=== PATIENT | female | born 1990 | race Caucasian/White ===

== ENCOUNTER 2016-09-02 11:33 | Emergency (ER) | payer MEDICAID ==
[~2016-09-02] VITALS: Ht 157.5 cm; Wt 77.1 kg
[~2016-09-02 11:33] MED LIST: ALPRAZOLAM0.5 MG PO; APAP/BUTALBITAL1 TA1 PO; BACTRIM DS 8001 TA1 PO; ETODOLAC200 MG PO; FERROUS SULFAT325 M2 PO; FLAGYL 500MG.500 MG PO; FLEXERIL10 MG PO; HYDROXYZINE 25M25 MG PO; IBUPROFEN200 MG PO; IBUPROFEN800 MG PO; KEFLEX 500MG.500 MG PO; KEFLEX500 M1 PO; LORTAB 5/500 501 TAB PO; LORTAB 500 MG-71 TAB PO; MOTRIN400 MG PO; NAPROSYN 500MG500 MG PO; NOMEDS; PERCOCET 5/3251 EACH PO; PHENERGAN 25MG.25 M1 PO; PNV-SELECT1 TAB PO; PREDNISONE 20MG20 MG PO; PRENATAL PLUS1 TA1 PO; PROZAC10 MG PO; TORADOL10 M1 PO; TYLENOL W/CODEI1 TA2 PO; VENLAFAXINE H37.5 MG PO; VENTOLIN H0.09 MG/AC IH; ZITHROMAX Z PA250 MG PO
--- OUTSIDE RECORDS SUMMARY | 2016-09-02 11:44 | External Medical Summary Rpt ---
Demographics Preferred Language Austrian Marital Status Unknown [employer] Affiliation Unknown Race Unknown Ethnic Group Unknown Author Author , BILL KHAN Address Unknown Phone Immunization Unable to retrieve immunization data due to connection failure with Immunization Registry. Please try again later.
--- OUTSIDE RECORDS SUMMARY | 2016-09-02 11:44 | External Medical Summary Rpt ---
Author Author BILL Zamora, BILL Zamora Organization [employer] Address Unknown Phone Unavailable
--- OUTSIDE RECORDS SUMMARY | 2016-09-02 11:44 | External Medical Summary Rpt ---
Author Author , BILL KHAN Address Unknown Phone [email or web address] Purpose Continuity of Care Document - through 2016 Problems Code Diagnosis DOS Provider Status S39.012A STRAIN OF MUSCLE, FASCIA AND TENDON OF LOWER BACK, INIT S60.229A CONTUSION OF UNSPECIFIED HAND, INITIAL ENCOUNTER S63.619A UNSPECIFIED SPRAIN OF UNSPECIFIED FINGER, INITIAL ENCOUNTER S93.409A SPRAIN OF UNSP LIGAMENT OF UNSPECIFIED ANKLE, INIT ENCNTR T14.8 OTHER INJURY OF UNSPECIFIED BODY REGION
--- OUTSIDE RECORDS SUMMARY | 2016-09-02 11:44 | External Medical Summary Rpt ---
Author Author , BILL KHAN Address Unknown Phone [email or web address] Purpose Continuity of Care Document - through [...]
--- OUTSIDE RECORDS SUMMARY | 2016-09-02 11:44 | External Medical Summary Rpt ---
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 Please try again later.
[2016-09-02] MEDS ORDERED: IBUPROFEN800 MG PO (12:14)
--- NOTE | 2016-09-02 12:15 | Urgent Treatment Center Report ---
History of Present Issue Date/Time Seen by Provider 09/02/16 1200 Visit Reason Pt arrived:Walked Presenting Problem:PT REPORTS L ANKLE PAIN R/T FALL LASTNIGHT. Location if Accident: Onset of symptoms date/time:09/01/16 or onset unknown for: Have you (or family members/close friends) recently traveled outside the [place]? N If Yes, where/when: Have you had exposure to infectious disease within the past month? TB? Other? Specify: Kenneth states that she was on her porch when she tripped and fell off the porch and landed on her left ankle state that she felt something "pop" and she has been having pain in the ankle ever since. States that pain is worse when she bears weight or trys to walk on it. ALLERGIES Coded Allergies: tramadol (From [facility]) (05/15/16) Home Medications Active Scripts Ibuprofen (Ibuprofen 800MG) 800 MG PO Q8HP PRN pain #15 TAB Prov: 06/11/16 Reported Medications ALPRAZOLAM (Alprazolam 0.5MG) 0.5 MG PO TID Fluoxetine Hcl (Prozac) 10 MG PO DAILY History Medical History General CAD? No Angina: Yes [place]: No Hypertension? No Hyperlipidemia? No CHF? No DVT? No PE? No COPD? No Asthma? No Anemia? No GERD? No Gastric ulcers? No GI Bleed? No Hernia? No Thyroid Problems? No Hypothyroidism? No CVA? No Seizures? No Diabetes? No UTI? Yes Stones? No GB Disease: No Nephritic Syndrome? No Asplenia? No Hepatitis? No Sickle Cell Disease? No Arthritis? No Migraines? No Cataracts? No Glaucoma? No MRSA? No HIV? No TB? No Anxiety? Yes Depression? No Cancer? No Immunization HX DT/Tetanus Unknown Flu 2011-FSN Pneumonia NEVER Surgical Hx Previous Surgery?Y CSECX2 TONSILS/ADENOIDS WISDOM TEETH EXTRACTION TUBAL LIGATION 08/14/2012 [employer] Hx LMP 2 Weeks Ago Family History Family HX Diabetes Yes CAD No Hypertension No Hyperlipidemia No Cancer Yes TB No Social History Smoking Hx Smoker: Current Every Day Smoker Tobacco: Yes Type Cigarettes Packs/day < 1 Pack Alcohol Alcohol: No Review of Systems All Other Systems Reviewed and Negative Comment Pain in left ankle after tripping and falling off her porch last night Physical Exam Vital Signs Vital Signs Date Time Temp Pulse Resp B/P Pulse O2 O2 Flow FiO2 Ox Delivery Rate 09/02 1146 98.0 85 20 125/74 98 09/02 1136 98.0 85 20 125/74 98 General Appearance normal appearance, WD/WN, no apparent distress Respiratory Status Yes: trachea midline, chest symmetrical, non tender chest. No: respiratory distress. 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 No Results/Orders Orders Procedure Date/time Status UTC STABILIZE JOINT/AREA 09/02 1212 Active ANKLE-LT-3 VIEWS 09/02 1148 Active Departure Departure Time of Disposition 2 Disposition DC Home or Self Care(routine) Clinical Impression Primary Impression: Ankle sprain Condition STABLE Referrals Bartolo SARAH,A.C. (Family): 2 Days-Call Office if worsening of symptoms for referral to ortho if needed Patient Instructions DI for Ankle Sprain, How To Perform RICE (Rest, Ice, Compress, Elevate) Additional Instructions *weight bearing as tolerated *RICE, Rest the extremity, Ice 15-20 minutes 3-4 times daily, Compress- wear the shawn wrap as discussed as much as possible to help reduce swelling and pain, Elevate the extremity when at rest *Shawn wrap is for support and help control swelling, use it except in the shower. Be sure that is not to tight but not to loose either *Elevate when resting *Ibuprofen 800mg every 6-8 hours as needed for pain an inflammation. If need something more can take Tylenol in between doses of Ibuprofen to help Immediately follow up for new or worsening of symptoms, or no noticeable improvement over the next 3-5 days Discharge Counseling Counseled pt/family regarding diagnosis, test results, medications/RX, home care, follow up needs Prescriptions Current Visit Scripts Ibuprofen (Ibuprofen 800MG) 800 MG PO QIDP PRN pain #30 TAB at 1214
--- NOTE | 2016-09-02 12:15 | Urgent Treatment Center Report ---
History of Present Issue Date/Time Seen by Provider 09/02/16 1200 Visit Reason Pt arrived:Walked Presenting Problem:PT REPORTS L ANKLE PAIN R/T FALL LASTNIGHT. Location if Accident: Onset of symptoms date/time:09/01/16 or onset unknown for: Have you (or family members/close friends) recently traveled outside the [place]? N If Yes, where/when: Have you had exposure to infectious disease within the past month? TB? Other? Specify: Kenneth states that she was on her porch when she tripped and fell off the porch and landed on her left ankle state that she felt something "pop" and she has been having pain in the ankle ever since. States that pain is worse when she bears weight or trys to walk on it. ALLERGIES Coded Allergies: tramadol (From [facility]) (05/15/16) Home Medications Active Scripts Ibuprofen (Ibuprofen 800MG) 800 MG PO Q8HP PRN pain #15 TAB Prov: 06/11/16 Reported Medications ALPRAZOLAM (Alprazolam 0.5MG) 0.5 MG PO TID Fluoxetine Hcl (Prozac) 10 MG PO DAILY History Medical History General CAD? No Angina: Yes [place]: No Hypertension? No Hyperlipidemia? No CHF? No DVT? No PE? No COPD? No Asthma? No Anemia? No GERD? No Gastric ulcers? No GI Bleed? No Hernia? No Thyroid Problems? No Hypothyroidism? No CVA? No Seizures? No Diabetes? No UTI? Yes Stones? No GB Disease: No Nephritic Syndrome? No Asplenia? No Hepatitis? No Sickle Cell Disease? No Arthritis? No Migraines? No Cataracts? No Glaucoma? No MRSA? No HIV? No TB? No Anxiety? Yes Depression? No Cancer? 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 Family History Family HX Diabetes Yes CAD No Hypertension No Hyperlipidemia No Cancer Yes TB No Social History Smoking Hx Smoker: Current Every Day Smoker Tobacco: Yes Type Cigarettes Packs/day < 1 Pack Alcohol Alcohol: No Review of Systems All Other Systems Reviewed and Negative Comment Pain in left ankle after tripping and falling off her porch last night Physical Exam Vital Signs Vital Signs Date Time Temp Pulse Resp B/P Pulse O2 O2 Flow FiO2 Ox Delivery Rate 09/02 1146 98.0 85 20 125/74 98 09/02 1136 98.0 85 20 125/74 98 General Appearance normal appearance, WD/WN, no apparent distress Respiratory Status Yes: trachea midline, chest symmetrical, non tender chest. No: respiratory distress. 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 No Results/Orders Orders Procedure Date/time Status UTC STABILIZE JOINT/AREA 09/02 1212 Active ANKLE-LT-3 VIEWS 09/02 1148 Active Departure Departure Time of Disposition 2 Disposition DC Home or Self Care(routine) Clinical Impression Primary Impression: Ankle sprain Condition STABLE Referrals Bartolo SARAH,A.C. (Family): 2 Days-Call Office if worsening of symptoms for referral to ortho if needed Patient Instructions DI for Ankle Sprain, How To Perform RICE (Rest, Ice, Compress, Elevate) Additional Instructions *weight bearing as tolerated *RICE, Rest the extremity, Ice 15-20 minutes 3-4 times daily, Compress- wear the shawn wrap as discussed as much as possible to help reduce swelling and pain, Elevate the extremity when at rest *Shawn wrap is for support and help control swelling, use it except in the shower. Be sure that is not to tight but not to loose either *Elevate when resting *Ibuprofen 800mg every 6-8 hours as needed for pain an inflammation. If need something more can take Tylenol in between doses of Ibuprofen to help Immediately follow up for new or worsening of symptoms, or no noticeable improvement over the next 3-5 days Discharge Counseling Counseled pt/family regarding diagnosis, test results, medications/RX, home care, follow up needs Prescriptions Current Visit Scripts Ibuprofen (Ibuprofen 800MG) 800 MG PO QIDP PRN pain #30 TAB at 1214
[2016-09-02 12:22] VITALS: BP 125/74
--- NOTE | 2016-09-02 13:35 | RADIOLOGY REPORT PS360 ---
ANKLE-LT-3 VIEWS HISTORY: Post traumatic pain FELL LAST NIGHT ORDERING PHYSICIAN: ISAC ARROYO APRN PATIENT AGE: 26 years COMPARISON: None FINDINGS: No fracture or dislocation. No lytic or blastic change. There is normal mineralization.. The joint spaces are well-preserved. No significant degenerative/arthritic changes. No erosive changes evident. IMPRESSION: Negative left ankle, no acute finding
== END 2016-09-02 12:22 | disposition home or self-care (01) ==
LOC: UTC 11:33 → ER 11:33 → UTC 11:42
DX: S93.402A Sprain of unspecified ligament of left ankle, initial encounter (principal); W17.89XA Other fall from one level to another, initial encounter; Y92.009 Unspecified place in unspecified non-institutional (private) residence as the place of occurrence of the external cause

== ENCOUNTER 2016-09-12 22:54 | Emergency (ER) | payer MEDICAID ==
[~2016-09-12] VITALS: Ht 157.5 cm; Wt 77.1 kg
--- NOTE | 2016-09-12 23:33 | Emergency Room Report ---
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 N Clinical Suspician of Infection? N Mental Status: 1 - Regular (Normal Baseline) Sepsis Risk:Possible Sepsis Risk Have you (or family members/close friends) recently traveled outside the [place]? N If Yes, where/when: Have you had exposure to infectious disease within the past month? N TB? Other? Specify: Source patient, RN notes reviewed, old records Exam Limitations no limitations Comment trip injury with back hit against chair with no radiation of pain Cardiac Chest Pain Chest pain indicative of cardiac No Timing/Duration this evening Severity moderate ALLERGIES Coded Allergies: tramadol (From [facility]) (05/15/16) Home Medications Active Scripts Ibuprofen (Ibuprofen 800MG) 800 MG PO QIDP PRN pain #30 TAB Prov: 09/02/16 Ibuprofen (Ibuprofen 800MG) 800 MG PO Q8HP PRN pain #15 TAB Prov: 06/11/16 Reported Medications ALPRAZOLAM (Alprazolam 0.5MG) 0.5 MG PO TID Fluoxetine Hcl (Prozac) 10 MG PO DAILY History Medical History General CAD? No Angina: Yes [place]: No Hypertension? No Hyperlipidemia? No CHF? No DVT? No PE? No COPD? No Asthma? No Anemia? No GERD? No Gastric ulcers? No GI Bleed? No Hernia? No Thyroid Problems? No Hypothyroidism? No CVA? No Seizures? No Diabetes? No End Stage Renal Disease? No UTI? Yes Stones? No GB Disease: No Nephritic Syndrome? No Asplenia? No Hepatitis? No Sickle Cell Disease? No Arthritis? No Migraines? No Cataracts? No Glaucoma? No MRSA? No HIV? No TB? No Anxiety? Yes Depression? No Cancer? 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 Respiratory denies cough, denies shortness of breath, denies wheezing Cardiovascular denies chest pain, denies palpitations, denies syncope Gastrointestinal denies abdominal pain, denies diarrhea, denies vomiting Genitourinary denies: dysuria, frequency, hesitancy, hematuria. Musculoskeletal see HPI, back pain, denies joint pain, denies joint swelling, denies neck pain Skin denies rash Psychiatric/Neurological denies headache, denies seizure Physical Exam Vital Signs Vital Signs Date Time Temp Pulse Resp B/P Pulse O2 O2 Flow FiO2 Ox Delivery Rate 09/12 2340 98.4 96 22 137/101 97 09/12 2303 98.4 96 22 151/78 97 - WBC >12,000 or <4,000 or 10% bands? 2 or more SIRS Criteria Met? B/P:137/101 MAP:102 Creatinine >2.0? UA output<0.5ml/kg/hr for 2 hrs? Platelet count >100,000? Lactate >2.0mmol/1? INR >1.2 or PTT > than 60 sec? Evidence of Organ Dysfunction? Provider documented clinical suspician of infection? N Sepsis Criteria Count: 2 Sepsis Risk: Possible Sepsis Risk General Appearance no apparent distress Eye Exam - bilateral eye PERRL, bilateral eye EOMI Ear, Nose, Throat normal ENT inspection Neck non-tender Respiratory Status No: respiratory distress. 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 No Results/Orders Laboratory Tests 09/12/16 2300: Urine Color YELLOW, Urine Appearance CLOUDY, Urine pH 8.5, Ur Specific [place] 1.015, Urine Protein NEGATIVE, Urine Ketones NEGATIVE, Urine Blood NEGATIVE, Urine Nitrate NEGATIVE, Urine Bilirubin NEGATIVE, Urine Urobilinogen 0.2, Ur Leukocyte Esterase NEGATIVE, Urine RBC NONE, Urine WBC OCC, Ur Squamous Epith Cells 3-5, Amorphous Sediment 2+, Urine Bacteria 1+, Urine Glucose NEGATIVE Orders Procedure Date/time Status LUMBAR SPINE 5 VIEWS 09/12 2339 Active URINALYSIS/COMPLETE 09/12 2310 Complete URINE 09/12 2310 Complete XRAY/CT/US XRAY/CT/US XRAY L-spine XR interpretation by reviewed by me Xray Results no fracture seen Departure Departure Time of Disposition 2347 Disposition DC Home or Self Care(routine) Clinical Impression Primary Impression: Sprain lumbar region Qualifiers: Encounter type: initial encounter Qualified Code: S33.5XXA - Sprain of ligaments of lumbar spine, initial encounter Condition STABLE Patient Instructions DI for Low Back Pain Additional Instructions ice alt with heat and see pcp for follow up Discharge Counseling Counseled pt/family regarding diagnosis, test results, medications/RX, follow up needs ED Critical Care Critical Care No at 2353
--- NOTE | 2016-09-12 23:33 | Emergency Room Report ---
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 N Clinical Suspician of Infection? N Mental Status: 1 - Regular (Normal Baseline) Sepsis Risk:Possible Sepsis Risk Have you (or family members/close friends) recently traveled outside the [place]? N If Yes, where/when: Have you had exposure to infectious disease within the past month? N TB? Other? Specify: Source patient, RN notes reviewed, old records Exam Limitations no limitations Comment trip injury with back hit against chair with no radiation of pain Cardiac Chest Pain Chest pain indicative of cardiac No Timing/Duration this evening Severity moderate ALLERGIES Coded Allergies: tramadol (From [facility]) (05/15/16) Home Medications Active Scripts Ibuprofen (Ibuprofen 800MG) 800 MG PO QIDP PRN pain #30 TAB Prov: 09/02/16 Ibuprofen (Ibuprofen 800MG) 800 MG PO Q8HP PRN pain #15 TAB Prov: 06/11/16 Reported Medications ALPRAZOLAM (Alprazolam 0.5MG) 0.5 MG PO TID Fluoxetine Hcl (Prozac) 10 MG PO DAILY History Medical History General CAD? No Angina: Yes [place]: No Hypertension? No Hyperlipidemia? No CHF? No DVT? No PE? No COPD? No Asthma? No Anemia? No GERD? No Gastric ulcers? No GI Bleed? No Hernia? No Thyroid Problems? No Hypothyroidism? No CVA? No Seizures? No Diabetes? No End Stage Renal Disease? No UTI? Yes Stones? No GB Disease: No Nephritic Syndrome? No Asplenia? No Hepatitis? No Sickle Cell Disease? No Arthritis? No Migraines? No Cataracts? No Glaucoma? No MRSA? No HIV? No TB? No Anxiety? Yes Depression? No Cancer? 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 LIGATION 08/14/2012 [employer] Hx LMP 1-6 Days Ago Family History Family Hx Diabetes Yes CAD No Hypertension No Hyperlipidemia No Cancer Yes TB No Social History Smoking Hx Smoker: Current Every Day Smoker Tobacco: Yes Type Cigarettes Packs/day < 1 Pack Alcohol Alcohol: No Drugs none Review of Systems All Other Systems Reviewed and Negative Constitutional denies fever Eyes denies drainage ENT denies: ear pain, epistaxis, throat pain. Respiratory denies cough, denies shortness of breath, denies wheezing Cardiovascular denies chest pain, denies palpitations, denies syncope Gastrointestinal denies abdominal pain, denies diarrhea, denies vomiting Genitourinary denies: dysuria, frequency, hesitancy, hematuria. Musculoskeletal see HPI, back pain, denies joint pain, denies joint swelling, denies neck pain Skin denies rash Psychiatric/Neurological denies headache, denies seizure Physical Exam Vital Signs Vital Signs Date Time Temp Pulse Resp B/P Pulse O2 O2 Flow FiO2 Ox Delivery Rate 09/12 2340 98.4 96 22 137/101 97 09/12 2303 98.4 96 22 151/78 97 - WBC >12,000 or <4,000 or 10% bands? 2 or more SIRS Criteria Met? B/P:137/101 MAP:102 Creatinine >2.0? UA output<0.5ml/kg/hr for 2 hrs? Platelet count >100,000? Lactate >2.0mmol/1? INR >1.2 or PTT > than 60 sec? Evidence of Organ Dysfunction? Provider documented clinical suspician of infection? N Sepsis Criteria Count: 2 Sepsis Risk: Possible Sepsis Risk General Appearance no apparent distress Eye Exam - bilateral eye PERRL, bilateral eye EOMI Ear, Nose, Throat normal ENT inspection Neck non-tender Respiratory Status No: respiratory distress. 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 No Results/Orders Laboratory Tests 09/12/16 2300: Urine Color YELLOW, Urine Appearance CLOUDY, Urine pH 8.5, Ur Specific [place] 1.015, Urine Protein NEGATIVE, Urine Ketones NEGATIVE, Urine Blood NEGATIVE, Urine Nitrate NEGATIVE, Urine Bilirubin NEGATIVE, Urine Urobilinogen 0.2, Ur Leukocyte Esterase NEGATIVE, Urine RBC NONE, Urine WBC OCC, Ur Squamous Epith Cells 3-5, Amorphous Sediment 2+, Urine Bacteria 1+, Urine Glucose NEGATIVE Orders Procedure Date/time Status LUMBAR SPINE 5 VIEWS 09/12 2339 Active URINALYSIS/COMPLETE 09/12 2310 Complete URINE 09/12 2310 Complete XRAY/CT/US XRAY/CT/US XRAY L-spine XR interpretation by reviewed by me Xray Results no fracture seen Departure Departure Time of Disposition 2347 Disposition DC Home or Self Care(routine) Clinical Impression Primary Impression: Sprain lumbar region Qualifiers: Encounter type: initial encounter Qualified Code: S33.5XXA - Sprain of ligaments of lumbar spine, initial encounter Condition STABLE Patient Instructions DI for Low Back Pain Additional Instructions ice alt with heat and see pcp for follow up Discharge Counseling Counseled pt/family regarding diagnosis, test results, medications/RX, follow up needs ED Critical Care Critical Care No at 2354
[2016-09-12 23:36] LABS: URINE BILIRUBIN - DIPSTICK NEGATIVE (NEG); URINE BLOOD NEGATIVE (NEG)
[2016-09-13 00:11] VITALS: BP 137/101
--- NOTE | 2016-09-13 06:27 | RADIOLOGY REPORT PS360 ---
EXAM: LUMBAR SPINE 5 VIEWS HISTORY: Post traumatic pain, low back pain fall ORDERING PHYSICIAN: Darren De Oliveira MD PATIENT AGE: 26 years COMPARISON: None FINDINGS: Normal alignment. No fracture or dislocation. No lytic or blastic change. No significant degenerative change. The disc spaces are preserved. IMPRESSION: Negative lumbar spine
--- OUTSIDE RECORDS SUMMARY | 2016-09-14 14:30 | External Medical Summary Rpt ---
Author Author , BILL KHAN Address Unknown Phone [email or web address] Immunization Name Date Rout CVX Reac Dose Comm Prov Is Faci e tion ent ider Refu lity Give sed n Tdap 09-2 115 999 Hist H149 No H149 , 1-20 oric Adso 12 al rbed Info rmat ion - Sour ce Unsp ecif ied
--- OUTSIDE RECORDS SUMMARY | 2016-09-14 14:30 | External Medical Summary Rpt ---
Author Author BILL Zamora, BILL [employer] Organization [employer] Address Unknown Phone Unavailable Results Urinalysis dipstick W Reflex Microscopic panel in Urine Observa Value Referen Units Interpr Notes Date tion ce etation Range Appeara CLOUDY CLEAR No No No Sep 12 nce of informa informa informa 2017 Urine tion in tion in tion in 11:00 source source source PM data data data Amorpho 2+ NONE No No No Sep 12 us informa informa informa 2017 sedimen tion in tion in tion in 11:00 t source source source PM [Presen data data data ce] in Urine sedimen t by Light microsc opy Bacteri 1+ O No No No Sep 12 a informa informa informa 2017 [Presen tion in tion in tion in 11:00 ce] in source source source PM Urine data data data sedimen t by Light microsc opy Bilirub NEGATIV NEG No No No Sep 12 in E informa informa informa 2016 [Presen tion in tion in tion in 11:00 ce] in source source source PM Urine data data data by Test strip Erythro NEGATIV NEG No No No Sep 12 cytes E informa informa informa 2017 [Presen tion in tion in tion in 11:00 ce] in source source source PM Urine data data data Color YELLOW YELLOW No No No Sep 12 of informa informa informa 2017 Urine tion in tion in tion in 11:00 source source source PM data data data Glucose NEG No No No Sep 12 [Mass/vol informati informati informati 2017 ume] in on in on in on in 11:00 PM Urine by source source source Test data data data strip Ketones NEGATIV NEG mg/dL No No Sep 12 E informa informa 2017 [Presen tion in tion in 11:00 ce] in source source PM Urine data data by Automat ed test strip Mucus NEGATIV NEG No No No Sep 12 [Presen E informa informa informa 2016 ce] in tion in tion in tion in 11:00 Urine source source source PM sedimen data data data t by Light microsc opy Nitrite NEGATIV NEG No No No Sep 12 E informa informa informa 2016 [Presen tion in tion in tion in 11:00 ce] in source source source PM Urine data data data by Test strip pH of 5.0 - 8.5 No Normal No Sep 12 Urine informati informati 2017 on in on in 11:00 PM source source data data Protein NEG mg/dL No No Sep 12 [Mass/vol informati informati 2017 ume] in on in on in 11:00 PM Urine by source source Automated data data test strip Erythro NONE 0 rbc/hpf No No Sep 12 cytes informa informa 2016 [Presen tion in tion in 11:00 ce] in source source PM Urine data data sedimen t by Light microsc opy Specific 1.005 - No Normal No Sep 12 gravity 1.030 informati informati 2017 of Urine on in on in 11:00 PM source source data data Epithel 3-5 0 - 5 #/hpf No No Sep 12 ial informa informa 2017 cells.s tion in tion in 11:00 quamous source source PM data data [Presen ce] in Urine sedimen t by Microsc opy high power field Urobili 0.2 NEG E.U./dL No No Sep 12 nogen informa informa 2016 [Presen tion in tion in 11:00 ce] in source source PM Urine data data by Test strip Leukocyte O wbc/hpf No No Sep 12 s informati informati 2017 [#/volume on in on in 11:00 PM ] in source source Urine data data Choriogonadotropin.beta subunit [Units] in 24 hour Urine Observa Value Referen Units Interpr Notes Date tion ce etation Range Choriogon NEG No No No Sep 12 adotropin informati informati informati 2017 .beta on in on in on in 11:00 PM subunit source source source [Units] data data data in 24 hour Urine Urinalysis dipstick W Reflex Microscopic panel in Urine Observa Value Referen Units Interpr Notes Date tion ce etation Range Appeara CLOUDY CLEAR No No No Sep 12 nce of informa informa informa 2017 Urine tion in tion in tion in 11:00 source source source PM data data data Bilirub NEGATIV NEG No No No Sep 12 in E informa informa informa 2016 [Presen tion in tion in tion in 11:00 ce] in source source source PM Urine data data data by Test strip Erythro NEGATIV NEG No No No Sep 12 cytes E informa informa informa 2016 [Presen tion in tion in tion in 11:00 ce] in source source source PM Urine data data data Color YELLOW YELLOW No No No Sep 12 of informa informa informa 2017 Urine tion in tion in tion in 11:00 source source source PM data data data Glucose NEG No No No Sep 12 [Mass/vol informati informati informati 2017 ume] in on in on in on in 11:00 PM Urine by source source source Test data data data strip Ketones NEGATIV NEG mg/dL No No Sep 12 E informa informa 2016 [Presen tion in tion in 11:00 ce] in source source PM Urine data data by Automat ed test strip Mucus NEGATIV NEG No No No Sep 12 [Presen E informa informa informa 2016 ce] in tion in tion in tion in 11:00 Urine source source source PM sedimen data data data t by Light microsc opy Nitrite NEGATIV NEG No No No Sep 12 E informa informa informa 2016 [Presen tion in tion in tion in 11:00 ce] in source source source PM Urine data data data by Test strip pH of 5.0 - 8.5 No Normal No Sep 7 Urine informati informati 2017 on in on in 11:00 PM source source data data Protein NEG mg/dL No No Sep 7 [Mass/vol informati informati 2017 ume] in on in on in 11:00 PM Urine by source source Automated data data test strip Specific 1.005 - No Normal No Sep 7 gravity 1.030 informati informati 2017 of Urine on in on in 11:00 PM source source data data Urobili 0.2 NEG E.U./dL No No Sep 7 nogen informa informa 2016 [Presen tion in tion in 11:00 ce] in source source PM Urine data data by Test strip
--- OUTSIDE RECORDS SUMMARY | 2016-09-14 14:30 | External Medical Summary Rpt ---
Author Author , BILL KHAN Address Unknown Phone [email or web address] Purpose Continuity of Care Document - 09-12-2016 through 2016 Problems Code Diagnosis DOS Provider Status S33.5XXA SPRAIN OF LIGAMENTS OF LUMBAR SPINE, INITIAL ENCOUNTER S39.012A STRAIN OF MUSCLE, FASCIA AND TENDON OF LOWER BACK, INIT S60.229A CONTUSION OF UNSPECIFIED HAND, INITIAL ENCOUNTER S63.619A UNSPECIFIED SPRAIN OF UNSPECIFIED FINGER, INITIAL ENCOUNTER S93.409A SPRAIN OF UNSP LIGAMENT OF UNSPECIFIED ANKLE, INIT ENCNTR S93.609A UNSPECIFIED SPRAIN OF UNSPECIFIED FOOT, INITIAL ENCOUNTER T14.8 OTHER INJURY OF UNSPECIFIED BODY REGION Results Labs Lab Lab Date Result Refere Interp Status Commen Order Detail nces retati t Range on Urinalysis dipstick W Reflex Microscopic panel in Urine (09-12-2016 23:00) Amorpho 2+ NONE complet us 017 ed sedimen 23:00 t [Presen ce] in Urine sedimen t by Light microsc opy Bacteri 1+ O complet a 017 ed [Presen 23:00 ce] in Urine sedimen t by Light microsc opy Erythro NONE 0 complet cytes 017 ed [Presen 23:00 ce] in Urine sedimen t by Light microsc opy Epithel 3-5 0#/hp complet ial 017 f - ed cells.s 23:00 5#/hp quamous f [Presen ce] in Urine sedimen t by Microsc opy high power field Urinalysis dipstick W Reflex Microscopic panel in Urine (09-12-2016 23:00) Appeara CLOUDY CLEAR complet nce of 017 ed Urine 23:00 Bilirub NEGATIV NEG complet in 017 E ed [Presen 23:00 ce] in Urine by Test strip Erythro NEGATIV NEG complet cytes 017 E ed [Presen 23:00 ce] in Urine Color YELLOW YELLOW complet of 017 ed Urine 23:00 Ketones NEGATIV NEG complet 017 E ed [Presen 23:00 ce] in Urine by Automat ed test strip Mucus NEGATIV NEG complet [Presen 017 E ed ce] in 23:00 Urine sedimen t by Light microsc opy Nitrite NEGATIV NEG complet 017 E ed [Presen 23:00 ce] in Urine by Test strip Urobili 0.2 NEG complet nogen 017 ed [Presen 23:00 ce] in Urine by Test strip
--- OUTSIDE RECORDS SUMMARY | 2016-09-14 14:30 | External Medical Summary Rpt ---
Author Author , BILL KHAN Address Unknown Phone [email or web address] Purpose Continuity of Care Document - 09-12-2016 [...]
--- OUTSIDE RECORDS SUMMARY | 2016-09-14 14:30 | External Medical Summary Rpt ---
Author Author , BILL KHAN Address Unknown Phone [email or web address] Immunization Name Date Rout CVX Reac Dose Comm Prov Is Faci e tion ent ider Refu lity Give sed n Tdap 09-2 115 999 Hist H149 No H149 , 1-20 oric Adso 12 al rbed Info rmat ion - Sour ce Unsp ecif ied
== END 2016-09-13 00:11 | disposition home or self-care (01) ==
LOC: ER 22:54
PROVIDERS: Emergency Medicine
DX: S33.5XXA Sprain of ligaments of lumbar spine, initial encounter (principal); F41.9 Anxiety disorder, unspecified; Z72.0 Tobacco use

== ENCOUNTER 2016-10-16 16:49 | Emergency (ER) | payer MEDICAID ==
[~2016-10-16] VITALS: Ht 157.5 cm; Wt 81.6 kg
--- NOTE | 2016-10-16 17:26 | Emergency Room Report ---
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 N Clinical Suspician of Infection? N Mental Status: 1 - Regular (Normal Baseline) Sepsis Risk:Possible Sepsis Risk Have you (or family members/close friends) recently traveled outside the [place]? N If Yes, where/when: Have you had exposure to infectious disease within the past month? N TB? Other? Specify: There is 26 years old white female was playing ON [place] [employer] with her when she fell landed with her LEFT face on the metal bar. It hurts when she moves her LEFT face and LEFT neck down through the LEFT shoulder. She denies radiation of the pain to the LEFT upper extremity legs and there is no loss of urine or bowel control. She will open her mouth with no difficulty. Source patient, RN notes reviewed Exam Limitations no limitations ALLERGIES Coded Allergies: tramadol (From ULTRAM) (05/15/16) Home Medications Active Scripts Ibuprofen (Ibuprofen 800MG) 800 MG PO QIDP PRN pain #30 TAB Prov: 09/02/16 Ibuprofen (Ibuprofen 800MG) 800 MG PO Q8HP PRN pain #15 TAB Prov: 06/11/16 Reported Medications ALPRAZOLAM (Alprazolam 0.5MG) 0.5 MG PO TID Fluoxetine Hcl (Prozac) 10 MG PO DAILY History Medical History General CAD? No Angina: Yes NE: No Hypertension? No Hyperlipidemia? No CHF? No DVT? No PE? No COPD? No Asthma? No Anemia? No GERD? No Gastric ulcers? No GI Bleed? No Hernia? No Thyroid Problems? No Hypothyroidism? No CVA? No Seizures? No Diabetes? No End Stage Renal Disease? No UTI? Yes Stones? No GB Disease: No Nephritic Syndrome? No Asplenia? No Hepatitis? No Sickle Cell Disease? No Arthritis? No Migraines? No Cataracts? No Glaucoma? No MRSA? No HIV? No TB? No Anxiety? Yes Depression? No Cancer? 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 Respiratory no symptoms reported Cardiovascular no symptoms reported Gastrointestinal no symptoms reported Genitourinary no symptoms reported. Musculoskeletal see HPI, joint pain, neck pain Skin no symptoms reported, see HPI Psychiatric/Neurological no symptoms reported Physical Exam Vital Signs Vital Signs Date Time Temp Pulse Resp B/P Pulse O2 O2 Flow FiO2 Ox Delivery Rate 10/16 1654 98.2 120 20 111/76 98 - WBC >12,000 or <4,000 or 10% bands? 2 or more SIRS Criteria Met? B/P:111/76 MAP: Creatinine >2.0? UA output<0.5ml/kg/hr for 2 hrs? Platelet count >100,000? Lactate >2.0mmol/1? INR >1.2 or PTT > than 60 sec? Evidence of Organ Dysfunction? Provider documented clinical suspician of infection? N Sepsis Criteria Count: 2 Sepsis Risk: Possible Sepsis Risk General Appearance normal appearance, WD/WN Eye Exam - bilateral eye normal exam, bilateral eye PERRL, bilateral eye EOMI Ear, Nose, Throat hearing grossly normal, normal ENT inspection Neck normal inspection, tender midline, THERE IS TENDERNESS ON THE left PARASPINAL MUSCLES EXTENDING TO THE left SHOULDER Respiratory Status Yes: trachea midline, chest symmetrical. No: respiratory distress, tender on palpation (left UPPER CHEST). Lung Sounds bilateral: normal breath sounds, lungs clear. 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 No Results/Orders Orders Procedure Date/time Status DIET-NOTHING BY MOUTH 10/16 D Active [id number] VIEWS 10/16 1727 Active CHEST(2 VIEWS-NOT PORTABLE) 10/16 1727 Active CLAVICLE-LT 10/[address] SINUS (MAX-FACIAL W/O CONT) 10/[address] HEAD W/O CONTRAST 10/[address] CERVICAL SPINE W/O CONT. 10/[address] HEAD REQ 10/[address] SCAN REQUEST 10/17 1655 Complete XRAY/CT/US XRAY/CT/US XRAY chest, C-spine, shoulder XR interpretation by reviewed by me Xray Results no fracture seen Departure Departure Time of Disposition 1828 Disposition DC/XFER from ER to [facility] Clinical Impression Primary Impression: Orbital floor fracture Secondary Impressions: Anterolisthesis Condition STABLE Additional Instructions 1827 AFTER REVIEWING X RAYS AND CT REPORTS i CALLED TRAUMA , I SPOKE WITH ADRIANA WHO IS A REFRACTORY MANAGER WHO ACCEPTED HER UNDER DR CASILLAS FOR DIRECT TRANSPORT. SHE WAS TRANSPORTED IN A STABLE CONDITON, Discharge Counseling Counseled pt/family regarding diagnosis, test results, follow up needs ED Critical Care Critical Care No at 1835
--- NOTE | 2016-10-16 17:26 | Emergency Room Report ---
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 N Clinical Suspician of Infection? N Mental Status: 1 - Regular (Normal Baseline) Sepsis Risk:Possible Sepsis Risk Have you (or family members/close friends) recently traveled outside the [place]? N If Yes, where/when: Have you had exposure to infectious disease within the past month? N TB? Other? Specify: There is 26 years old white female was playing ON [place] [employer] with her when she fell landed with her LEFT face on the metal bar. It hurts when she moves her LEFT face and LEFT neck down through the LEFT shoulder. She denies radiation of the pain to the LEFT upper extremity legs and there is no loss of urine or bowel control. She will open her mouth with no difficulty. Source patient, RN notes reviewed Exam Limitations no limitations ALLERGIES Coded Allergies: tramadol (From ULTRAM) (05/15/16) Home Medications Active Scripts Ibuprofen (Ibuprofen 800MG) 800 MG PO QIDP PRN pain #30 TAB Prov: 09/02/16 Ibuprofen (Ibuprofen 800MG) 800 MG PO Q8HP PRN pain #15 TAB Prov: 06/11/16 Reported Medications ALPRAZOLAM (Alprazolam 0.5MG) 0.5 MG PO TID Fluoxetine Hcl (Prozac) 10 MG PO DAILY History Medical History General CAD? No Angina: Yes PR: No Hypertension? No Hyperlipidemia? No CHF? No DVT? No PE? No COPD? No Asthma? No Anemia? No GERD? No Gastric ulcers? No GI Bleed? No Hernia? No Thyroid Problems? No Hypothyroidism? No CVA? No Seizures? No Diabetes? No End Stage Renal Disease? No UTI? Yes Stones? No GB Disease: No Nephritic Syndrome? No Asplenia? No Hepatitis? No Sickle Cell Disease? No Arthritis? No Migraines? No Cataracts? No Glaucoma? No MRSA? No HIV? No TB? No Anxiety? Yes Depression? No Cancer? 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 Respiratory no symptoms reported Cardiovascular no symptoms reported Gastrointestinal no symptoms reported Genitourinary no symptoms reported. Musculoskeletal see HPI, joint pain, neck pain Skin no symptoms reported, see HPI Psychiatric/Neurological no symptoms reported Physical Exam Vital Signs Vital Signs Date Time Temp Pulse Resp B/P Pulse O2 O2 Flow FiO2 Ox Delivery Rate 10/16 1654 98.2 120 20 111/76 98 - WBC >12,000 or <4,000 or 10% bands? 2 or more SIRS Criteria Met? B/P:111/76 MAP: Creatinine >2.0? UA output<0.5ml/kg/hr for 2 hrs? Platelet count >100,000? Lactate >2.0mmol/1? INR >1.2 or PTT > than 60 sec? Evidence of Organ Dysfunction? Provider documented clinical suspician of infection? N Sepsis Criteria Count: 2 Sepsis Risk: Possible Sepsis Risk General Appearance normal appearance, WD/WN Eye Exam - bilateral eye normal exam, bilateral eye PERRL, bilateral eye EOMI Ear, Nose, Throat hearing grossly normal, normal ENT inspection Neck normal inspection, tender midline, THERE IS TENDERNESS ON THE left PARASPINAL MUSCLES EXTENDING TO THE left SHOULDER Respiratory Status Yes: trachea midline, chest symmetrical. No: respiratory distress, tender on palpation (left UPPER CHEST). Lung Sounds bilateral: normal breath sounds, lungs clear. 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 No Results/Orders Orders Procedure Date/time Status DIET-NOTHING BY MOUTH 10/16 D Active [id number]-3 VIEWS 10/16 1727 Active CHEST(2 VIEWS-NOT PORTABLE) 10/16 1727 Active CLAVICLE-LT 10/[address] SINUS (MAX-FACIAL W/O CONT) 10/[address] HEAD W/O CONTRAST 10/[address] CERVICAL SPINE W/O CONT. 10/[address] HEAD REQ 10/[address] SCAN REQUEST 10/17 1655 Complete XRAY/CT/US XRAY/CT/US XRAY chest, C-spine, shoulder XR interpretation by reviewed by me Xray Results no fracture seen Departure Departure Time of Disposition 1828 Disposition DC/XFER from ER to T. 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 SHE WAS TRANSPORTED IN A STABLE CONDITON, Discharge Counseling Counseled pt/family regarding diagnosis, test results, follow up needs ED Critical Care Critical Care No at 1835
[2016-10-16 20:13] VITALS: BP 111/67
--- NOTE | 2016-10-17 05:06 | RADIOLOGY REPORT PS360 ---
CT HEAD W/O CONTRAST HISTORY: Headache, head pain, blunt trauma with contusion or hematoma [facility] ORDERING PHYSICIAN: Morales Longo MD PATIENT AGE: 26 years COMPARISON: None TECHNIQUE: Axial images obtained without contrast. Brain and bone windows reviewed. FINDINGS: No midline shift, mass effect, intracranial hemorrhage, hydrocephalus, or extra-axial fluid collection is evident. The calvarium has an unremarkable appearance. No mastoid effusion. There is mild mucosal thickening of the ethmoid sinuses.. IMPRESSION: No acute intracranial findings
--- NOTE | 2016-10-17 05:06 | RADIOLOGY REPORT PS360 ---
CT HEAD W/O CONTRAST HISTORY: Headache, head pain, blunt trauma with contusion or hematoma FELL OFF OF [facility] ORDERING PHYSICIAN: Morales Longo MD PATIENT AGE: 26 years COMPARISON: None TECHNIQUE: Axial images obtained without contrast. Brain and bone windows reviewed. FINDINGS: No midline shift, mass effect, intracranial hemorrhage, hydrocephalus, or extra-axial fluid collection is evident. The calvarium has an unremarkable appearance. No mastoid effusion. There is mild mucosal thickening of the ethmoid sinuses.. IMPRESSION: No acute intracranial findings
--- NOTE | 2016-10-17 05:08 | RADIOLOGY REPORT PS360 ---
CT CERVICAL SPINE W/O CONT INDICATION: Neck pain following injury, neck pain/sprain/strain FELL OFF OF [facility] ORDERING PHYSICIAN: Morales Longo MD PATIENT AGE: 26 years COMPARISON: None TECHNIQUE: Axial images are obtained without contrast. Sagittal and coronal reformatted images are reviewed as well. FINDINGS: Normal alignment. Straightening of cervical lordosis which could be due to patient positioning or muscle spasm. No acute fracture. Minimal anterolisthesis C3 on C4. The disc spaces are well-preserved. No prevertebral soft tissue swelling. Lung apices are clear. Scattered small lymph nodes are present in the neck. IMPRESSION: No acute fracture
--- NOTE | 2016-10-17 05:08 | RADIOLOGY REPORT PS360 ---
CT CERVICAL SPINE W/O CONT INDICATION: Neck pain following injury, neck pain/sprain/strain FELL OFF OF [facility] ORDERING PHYSICIAN: Morales Longo MD PATIENT AGE: 26 years COMPARISON: None TECHNIQUE: Axial images are obtained without contrast. Sagittal and coronal reformatted images are reviewed as well. FINDINGS: Normal alignment. Straightening of cervical lordosis which could be due to patient positioning or muscle spasm. No acute fracture. Minimal anterolisthesis C3 on C4. The disc spaces are well-preserved. No prevertebral soft tissue swelling. Lung apices are clear. Scattered small lymph nodes are present in the neck. IMPRESSION: No acute fracture
--- NOTE | 2016-10-17 05:13 | RADIOLOGY REPORT PS360 ---
CT SINUS (MAX-FACIAL W/O CONT) CLINICAL INDICATION: L pain, blunt trauma with contusion or hematoma acute bone and 4 head FELL OFF OF [facility] ORDERING PHYSICIAN: Morales Longo MD PATIENT AGE: 26 years COMPARISON: None TECHNIQUE:Axial, sagittal, and coronal images are generated and reviewed without contrast FINDINGS: Fracture of the right orbital floor measuring 8 mm in length. A small amount of intraorbital fat extending into the defect. The inferior rectus muscle on the right does not extend into the defect. No soft tissue swelling or sinus air-fluid level. There is mucosal thickening of the ethmoid sinuses. The globes appear intact. IMPRESSION: Right orbital floor fracture. This may be old as there is no overlying soft tissue swelling or sinus air-fluid level. Please correlate with clinical parameters.
--- NOTE | 2016-10-17 05:13 | RADIOLOGY REPORT PS360 ---
CT SINUS (MAX-FACIAL W/O CONT) CLINICAL INDICATION: L pain, blunt trauma with contusion or hematoma acute bone and 4 head FELL OFF OF [facility] ORDERING PHYSICIAN: Morales Longo MD PATIENT AGE: 26 years COMPARISON: None TECHNIQUE:Axial, sagittal, and coronal images are generated and reviewed without contrast FINDINGS: Fracture of the right orbital floor measuring 8 mm in length. A small amount of intraorbital fat extending into the defect. The inferior rectus muscle on the right does not extend into the defect. No soft tissue swelling or sinus air-fluid level. There is mucosal thickening of the ethmoid sinuses. The globes appear intact. IMPRESSION: Right orbital floor fracture. This may be old as there is no overlying soft tissue swelling or sinus air-fluid level. Please correlate with clinical parameters.
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
--- NOTE | 2016-10-17 05:33 | RADIOLOGY REPORT PS360 ---
CLAVICLE-LT CLINICAL INDICATION: Pain, contusion TRAUMA ORDERING PHYSICIAN: Morales Longo MD PATIENT AGE: 26 years COMPARISON: None FINDINGS: No fracture or dislocation. No lytic or blastic change. IMPRESSION: Negative left clavicle
--- NOTE | 2016-10-17 05:34 | RADIOLOGY REPORT PS360 ---
[id number] VIEWS HISTORY: Pain following injury TRAUMA ORDERING PHYSICIAN: Morales Longo MD PATIENT AGE: 26 years COMPARISON: None FINDINGS: No fracture or dislocation. No lytic or blastic change. There is normal mineralization. The joint spaces are well-preserved. No significant degenerative/arthritic changes. No erosive changes evident. IMPRESSION: Negative, no acute finding
[2016-10-17] MEDS ORDERED: NAPROXEN SODIU500 MG PO (15:28)
== END 2016-10-16 19:40 | disposition short-term general hospital (02) ==
LOC: ER 16:49
DX: S02.3 Fracture of orbital floor (principal); S01.81XA Laceration without foreign body of other part of head, initial encounter; M43.10 Spondylolisthesis, site unspecified; W09.8XXA Fall on or from other playground equipment, initial encounter; Y92.838 Other recreation area as the place of occurrence of the external cause; F17.210 Nicotine dependence, cigarettes, uncomplicated

== ENCOUNTER 2016-10-17 13:44 | Emergency (ER) | payer MEDICAID ==
[~2016-10-17] VITALS: Ht 157.5 cm; Wt 81.6 kg
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
[2016-10-17] MEDS ORDERED: NAPROXEN SODIU500 MG PO (15:28)
[2016-10-17 15:43] VITALS: BP 138/85
== END 2016-10-17 15:44 | disposition home or self-care (01) ==
LOC: UTC 13:44 → ER 13:47 → UTC 13:47 → ER 15:44
DX: R51 Headache (principal); W22.8XXA Striking against or struck by other objects, initial encounter; Y93.I9 Activity, other involving external motion; Y92.9 Unspecified place or not applicable; Z79.899 Other long term (current) drug therapy

== ENCOUNTER → 2016-11-23 | Outpatient (CLI) | payer MEDICAID ==
[~2016-11-23] MED LIST changes: +NAPROXEN SODIU500 MG PO
--- NOTE | 2016-11-25 11:34 | RADIOLOGY REPORT PS360 ---
MRI-UP EXT ANY JNT W/O-LT MRI right shoulder HISTORY: DECREASED ROM OF LEFT SHOULDER, INJURY OF LEFT SHOULDERpain with raising arm upward. Shoulder pain radiates to left side of neck. Patient fell and landed on shoulder one month ago. Weakness left arm. Patient Age: 26 years: Female Ordering Physician: Juli GARCIA TECHNIQUE: Multiplanar multisequence imaging 1.5 T MR COMPARISON :3 views left shoulder FINDINGS There is no full-thickness rotator cuff tear. No tendon retraction. No fluid at subdeltoid subacromial bursa.No fracture evident Only question some minor tendinopathy at the supraspinatus tendon. Unimpressive. The acromion is fairly neutral in its course on coronal images only slight downward sloping. Modest subacromial space 6 mm beneath tip of acromion could give breast impingement symptoms. . The contour of distal clavicle and AC joint also yields some mild indentation upon supraspinatus as it passes beneath this area at medial. The distal clavicle acromion and coracoid otherwise appear intact. Humeral head and neck intact no fracture evident.. AC joint normal width. The muscles of the rotator cuff are well-maintained well-developed. No abnormal signal within muscles Upper normal slight increased fluid at the left shoulder joint. Minimal fluid extends into the subcoracoid recess. The glenohumeral joint intact. Anterior posterior labrum appear grossly intact. The biceps tendon most likely is intact. Is not well-visualized just above the bicipital groove cannot exclude some mild tendinopathy here but most likely this is normal and overall intact as viewed segmentally as can be followed leading to the biceps anchor. IMPRESSION: 1. No discrete or full-thickness rotator cuff tear evident Only question minimal tendinopathy supraspinatus tendon. Unimpressive. 2.. Modest subacromial space to contribute to yield impingement symptoms if present.; As could other noted anatomical features. 3. Upper normal to scant increased joint fluid at left shoulder. 4. Other minor comments in text. Glenoid and glenoid labrum are grossly intact.
== END ==
LOC: RAD 15:36
DX: M25.612 Stiffness of left shoulder, not elsewhere classified (principal); S49.92XD Unspecified injury of left shoulder and upper arm, subsequent encounter